=== PATIENT | male | born 2000 | race Caucasian/White ===

== ENCOUNTER 2020-02-04 19:35 | Inpatient (IN) | payer OTHER ==
--- OUTSIDE RECORDS SUMMARY | 2020-02-04 19:50 | XMS ---
:2000 [facility] Support Name Relationship Address Phone [employer] Unavailable [address] [facility] [phone] [place] [address] EDITH ARANGO MOTHER [address] [place] [address] Re-disclosure Warning The records that you are about to access may contain information from federally- assisted alcohol or drug abuse programs. If such information is present, then the following federally mandated warning applies: This information has been disclosed to you from records protected by federal confidentiality rules (42 CFR part 2). The federal rules prohibit you from making any further disclosure of this information unless further disclosure is expressly permitted by the written consent of the person to whom it pertains or as otherwise permitted by 42 CFR part 2. A general authorization for the release of medical or other information is NOT sufficient for this purpose. The Federal rules restrict any use of the information to criminally investigate or prosecute any alcohol or drug abuse patient.The records that you are about to access may contain highly sensitive health information, the redisclosure of which is protected by Article 27-F of the [facility] Public Health law. If you continue you may haveaccess to information: Regarding HIV / AIDS; Provided by facilities licensed or operated by the [facility] Office of Mental Health; or Provided by the [facility] Office for People With Developmental Disabilities. If such information is present, then the following [facility] mandated warning applies: This information has been disclosed to you from confidential records which are protected by state law. State law prohibits you from making any further disclosure of this information without the specific written consent of the person to whom it pertains, or as otherwise permitted by law. Any unauthorized further disclosure in violation of state law may result in a fine or senior living sentence or both. A general authorization for the release of medical or other information is NOT sufficient authorization for further disclosure. Insurance Providers Payer name Policy type Policy ID Covered Covered green party's Policy P vidhya / Coverage green party ID relationship to [employer] ormation type lfynn AFFINITY [id number] SP [id number]
--- NOTE | 2020-02-04 20:12 | PDOC ---
History of Present Illness - General Chief Complaint: Pain, Acute Stated Complaint: ABD PAIN Time Seen by Provider: 02/04/20 20:07 - History of Present Illness Initial Comments: 19yo M with no significant PMH presents with abdominal pain x1 day. Thinks episode was triggered by eating spoiled sausage this am. States that abdominal pain is constant, 6-8/10 in intensity, diffuse, described as bloating sensation, worsened with positional change - laying flat, laying on side; improved with sitting up. Took pepto and deanna seltzer without improvement. Reports annual episodes of similar symptoms, goes to [facility] and has been treated with fluids and unknown medications with improvement. Has not seen a horticultural specialty grower. Denies hx of abdominal surgeries. Reports associated subjective f/c, n/v. Reports 1 episode of NBNB emesis, has been able to tolerate water intake without further emesis. PCP: Irwin PMH: denies PSH: ankle surgery Meds: denies All: NKDA Review of Systems CONSTITUTIONAL: reports subjective fever, chills; denies diaphoresis, generalized weakness, malaise HEENT: denies rhinorrhea, nasal congestion, sore throat CARDIOVASCULAR: denies chest pain, syncope, palpitations, irregular heart rate, lightheadedness, peripheral edema RESPIRATORY: denies cough, shortness of breath GASTROINTESTINAL: reports abdominal pain, abdominal distension, nausea, vomiting; denies diarrhea, constipation, melena, hematochezia GENITOURINARY: denies dysuria, frequency, urgency, hematuria, flank pain, genital pain MUSCULOSKELETAL: denies myalgia, arthralgia ENDOCRINE: denies unexplained weight gain, unexplained weight loss NEUROLOGIC: denies headache, loss of consciousness, focal weakness or paresthesias, dizziness SKIN: denies rash, itching Physical Exam General: awake, alert, fully oriented, in mild distress, well developed, well nourished Head: normocephalic, atraumatic Eyes: PERRL, anicteric sclera, conjunctiva clear ENT: hearing grossly normal, oropharynx clear without exudates, moist mucous membranes Lung: equal breath sounds b/l, CTA b/l, no crackles, wheezes; no distress, speaks full sentences Heart: RRR, normal S1, S2, no murmurs appreciated Abdomen: diffusely tender with maximal point of tenderness in RLQ, normoactive bowel sounds, + rebound, + Psoas, + obturator signs Extremities: normal ROM, no edema, no erythema or tenderness, DP/PT pulses 2+ and symmetric, no clubbing, cyanosis Neuro: CN2-12 grossly intact, moves all extremities, normal speech, sensation intact Skin: warm, dry, normal skin turgor, capillary refill <2 seconds, no rashes or lesions noted MDM 19yo M with no significant PMH presents with abdominal pain x1 day. Vitals WNL DDx including but not limited to: appendicitis, pancreatitis, gastritis Workup: CBC, CMP, lipase, UA, CT a/p TX: IV fluids, tylenol, zofran, pepcid ED course Labs: slight leukocytosis (11.7), no anemia; UA - ketonuria, electrolytes WNL, lipase WNL 02/04/20 22:30 Pt reports mild improvement in pain with Pepcid 02/04/20 23:[address] Rinaldi - patient with early appendicitis with dilated appendix @ 1cm and slight free fluid in pelvis CT a/p The appendix is dilated up to 1 cm with intraluminal fluid and an intraluminal appendicolith. No appreciable periappendiceal inflammation but there is fluid in the pelvic gutter. Findings most likely represent early acute appendicitis. No free intraperitoneal air. No abscess. No bowel obstruction. - Will order Zosyn - NPO - Will order T&S, Coags Disposition: Admit Past History - Medical History Allergies/Adverse Reactions: Allergies Allergy/AdvReac Type Severity Reaction Status Date / Time No Known Allergies Allergy Verified 02/04/20 21:17 Home Medications: Ambulatory Orders NK [No Known Home Medication] 02/04/20 Anemia: No COPD: No - Immunization History Immunization Up to Date: Yes - Psycho-Social/Smoking History Smoking History: Never smoked - Substance Abuse Hx (Audit-C & DAST Scrn) How often the patient has a drink containing alcohol: Never Score: In Men: 4 or > Positive; In Women: 3 or > Positive: 0 Screen Result (Pos requires Nsg. Audit-10AR): Negative In the last yr the pt used illegal drug/Rx for NonMed reason: No Score: Yes response is considered Positive: 0 Screen Result (Positive result requires Nsg. DAST-10): Negative *Physical Exam - Vital Signs Last Vital Signs Temp Pulse Resp BP Pulse Ox 98.6 F 47 L 19 122/57 L 100 02/04/20 19:39 02/04/20 19:39 02/04/20 19:39 02/04/20 19:39 02/04/20 19:39 ED Treatment Course - LABORATORY CBC & Chemistry Diagram: 02/04/20 20:10 02/04/20 20:10 Discharge - Discharge Information Problems reviewed: Yes Clinical Impression/Diagnosis: Appendicitis Qualifiers: Appendicitis type: acute appendicitis Acute appendicitis type: unspecified acute appendicitis type Qualified Code(s): K35.80 - Unspecified acute appendicitis Condition: Stable - Admission Yes - Follow up/Referral - Patient Discharge Instructions - Post Discharge Activity
[2020-02-04] MEDS ORDERED: ACETAMINOPHEN 1000 MG/100 ML VIAL (NON FORMULARY) IVPB ONE (20:50)
[2020-02-04] MEDS ORDERED: ONDANSETRON 4 MG/2 ML VIAL IVPUSH ONE (20:50)
[2020-02-04] MEDS ORDERED: SODIUM CHLORIDE 0.9% 1000 ML INFUS.BAG IV ONE ×2 (20:50→22:14)
[2020-02-04] MEDS ORDERED: FAMOTIDINE 20 MG/50 ML IVPB 20 MG/50 ML MG IVPB ONE ×2 (20:50→21:24)
[2020-02-04] MEDS ORDERED: ACETAMINOPHEN INJECTION 100 ML IVPB ONE (21:24)
[2020-02-04 21:38] LABS: BASO % 0.2 % (0-2.0); EOS % 0.1 % (0-4.5); HEMATOCRIT 43.2 % (35.4-49); HEMOGLOBIN 14.8 GM/dL (11.7-16.9); LYMPH % 7.6 % (8-40); MCH 32.5 pg (25.7-33.7); MCHC 34.3 g/dl (32.0-35.9); MEAN CELL VOLUME 94.7 fl (80-96); MONO % 3.4 % (3.8-10.2); NEUT % 88.7 % (42.8-82.8); PLATELET COUNT 217 K/MM3 (134-434); RBC 4.57 M/mm3 (4.00-5.60); RDW 12.8 % (11.9-15.9); WHITE BLOOD COUNT 11.7 K/mm3 (4.0-10.0)
[2020-02-04 21:41] LABS: PH,URINE 5.5 (5.0-8.0); URINE APPEARANCE CLEAR; URINE BILIRUBIN NEGATIVE (NEGATIVE); URINE COLOR YELLOW; URINE GLUCOSE (UA) NEGATIVE (NEGATIVE); URINE KETONE 3+ (NEGATIVE); URINE LEUK ESTERASE NEGATIVE (NEGATIVE); URINE NITRITE NEGATIVE (NEGATIVE); URINE PROTEIN NEGATIVE (NEGATIVE); URINE UROBILINOGEN 0.2 mg/dL (0.2-1.0)
--- NOTE | 2020-02-04 21:54 | PDOC ---
Documentation entered by Rich Campos SCRIBE, acting as scribe for Yaquelin Decker DO. Yaquelin Decker DO: This documentation has been prepared by the Rush benedict inRich SCRIBE, under my direction and personally reviewed by me in its entirety. I confirm that the documentation accurately reflects all work, treatment, procedures, and medical decision making performed by me. Attending Attestation - Resident Resident Name: DurgaYadira - ED Attending Attestation I have performed the following: I have examined & evaluated the patient, The case was reviewed & discussed with the resident, I agree w/resident's findings & plan, Exceptions are as noted - HPI HPI: 02/04/20 21:05 The patient is a 19 year old male with no significant past medical history who presents to the emergency department for evaluation of abdominal pain that began this morning after eating a spoiled sausage. The patient reports his constant 6- 8/10 pain is associated with bloating and worsened with lying down and improved with sitting up. He endorses taking pepto and deanna sletzer to no relief. He notes a history of similar symptoms for which he goes to [place] but has never seen a GI. The patient denies chest/back pain, cough, shortness of breath, fever, chills, nausea, and vomiting. Denies any symptoms. Denies any other symptoms. Allergies: NKA Social Hx: None reported Surgical Hx: ankle surgery PCP: Bassem Gayle MD - Physicial Exam PE: 02/04/20 20:50 Constitutional: Awake, alert, oriented. No acute distress. Head: Normocephalic. Atraumatic Eyes: PERRL. EOMI. Conjunctivae are not pale. ENT: Mucous membranes are moist and intact. Posterior pharynx without exudates or erythema. Uvula midline. Neck: Supple. Full ROM. No lymphadenopathy. Cardiovascular: Regular rate. Regular rhythm. S1, S2 regular. Distal pulses are 2+ and symmetric. Pulmonary/Chest: No evidence of respiratory distress. Clear to auscultation bilaterally No wheezing, rales or rhonchi. Abdominal: Soft and non-distended. There is no tenderness. No rebound, guarding or rigidity. No organomegaly. No palpable masses. Good bowel sounds. Back: No CVA tenderness. Musculoskeletal: No edema. No cyanosis. No clubbing. Full range of motion in all extremities. Nocalf tenderness. Radial/pedal pulses are intact and 2+ bilaterally Skin: Skin is warm and dry. No petechiae. No purpura. Neurological: Alert and oriented to person, place, and time. Cranial nerves II-XII are grossly intact. Normal speech. Strength is grossly symmetric. No sensory deficits. Psychiatric: Good eye contact. Normal interaction, affect and behavior. - Medical Decision Making 02/04/20 21:53 a/p: 19yo male with acute onset of abd pain assoc with n/v -diffuse ttp, +rebound ttp diffusely, but worse in RLQ -concern for acute appy, pancreatitis, colitis -will send labs, ct imaging -will medicate for pain and nausea, ivf -will monitor and reassess 02/04/20 23:37 pt with early appy will need iv abx and ivf 02/04/20 23:39 consult placed to Rohini 02/04/20 23:41 [facility] Discharge - Discharge Information Problems reviewed: Yes Clinical Impression/Diagnosis: Appendicitis Condition: Fair - Admission Yes - Follow up/Referral Referrals: Bassem Gayle MD [Primary Care Provider] - - Patient Discharge Instructions - Post Discharge Activity
[2020-02-04 22:09] LABS: ALBUMIN 4.4 g/dl (3.4-5.0); BLOOD UREA NITROGEN 18.4 mg/dL (7-18); CALCIUM 9.6 mg/dL (8.5-10.1)
[2020-02-04 22:14] LABS: BILIRUBIN,TOTAL 1.2 mg/dL (0.2-1)
[2020-02-04 22:15] LABS: TOT PROT 7.3 g/dl (6.4-8.2)
[2020-02-04 22:16] LABS: POTASSIUM 4.3 mmol/L (3.5-5.1)
[2020-02-04] MEDS ORDERED: PIPERACILLIN/TAZOB 3.375 GM 3.375 GM in DEXTROSE 5%-WATER - 50 ML IVPB ONE (23:42)
[2020-02-04] MEDS ORDERED: PIPERACILLIN/TAZOB 3.375 GM 3.375 GM/50 ML BAG IVPB ONE (23:56)
--- NOTE | 2020-02-05 01:39 | PN ---
Teaching Attending Note Name of Resident: Radha Avendaño ATTENDING PHYSICIAN STATEMENT I saw and evaluated the patient. I reviewed the resident's note and discussed the case with the resident. I agree with the resident's findings and plan as documented. SUBJECTIVE: Patient is a 19 year old man with no reported PMH who presents with abdominal pain for 1 day. Thinks episode was triggered by eating spoiled sausage this am. States that abdominal pain is constant, 8/10 in intensity, diffuse and described as bloating sensation. Pain is worsened with positional change - laying flat, laying on side; improved with sitting up. Took Pepto and Anna seltzer without improvement. Reports annual episodes of similar symptoms, goes to [facility] and has been treated with fluids and unknown medications with improvement. Has not seen a GI. Denies abdominal surgeries. Reports associated fever, chills, nausea and vomiting. Reports one episode of NBNB emesis, has been able to tolerate water intake without further emesis. Patient denies chest pain, shortness of breath, headache, palpitations, dizziness, diarrhea, constipation, dysuria, frequency, urgency, melena, hematochezia or hematuria. Denies alcohol, tobacco or illicit drug use. No sick contacts or recent travels. Family history of DM in mother. OBJECTIVE: Alert Vital Signs Period Temp Pulse Resp BP Sys/Jon Pulse Ox Last 24 Hr 98.4 F-98.6 F 47-50 19-20 122-128/57-69 100-100 HEENT: No Jaundice, eye redness or discharge, PERRLA, EOMI. Normocephalic, atraumatic. External ears are normal and hearing is grossly intact. No nasal discharge. Neck: Supple, nontender. No palpable adenopathy or thyromegaly. No JVD Chest: Good effort. Clear to auscultation and percussion. Heart: Regular. No S3, rub or murmur Abdomen: Not distended, soft, RLQ tenderness and no HSM. No rebound or guarding. Normal bowel sounds. Ext: Peripheral pulses intact. No leg edema. Skin: Warm and dry. No petechiae, rash or ecchymosis. Neuro: Alert. Oriented x3. CN 2-12 grossly intact. Sensation grossly intact in all four extremities and DTR are symmetric. Psych: Appropriate mood and affect. Good insight. Home Medications Medication Instructions Recorded NK [No Known Home Medication] 02/04/20 Abnormal Lab Results 02/04/20 02/04/20 02/04/20 20:10 20:10 20:10 WBC 11.7 H Absolute Neuts (auto) 10.4 H Neutrophils % 88.7 H Lymphocytes % 7.6 L D Monocytes % 3.4 L Anion Gap 7 L BUN 18.4 H Random Glucose 117 H Total Bilirubin 1.2 H AST 64 H Urine Ketones 3+ H Current Medications Generic Name Dose Route Start Last Admin Trade Name Frewendy PRN Reason Stop Dose Admin Acetaminophen 1,000 mg 02/05/20 03:48 Ofirmev Injection - IVPB 02/06/20 03:48 Q6H PRN PAIN LEVEL 6-10 Dextrose/Sodium Chloride 1,000 mls @ 100 mls/hr 02/05/20 03:45 02/05/20 04:51 D5-Ns - IV 02/08/20 13:44 100 mls/hr ASDIR OLINDA Administration Piperacillin Sod/Tazobactam 50 mls @ 100 mls/hr 02/05/20 05:45 Sod 3.375 gm/ Dextrose IVPB Q6H-IV OLINDA Protocol ASSESSMENT AND PLAN: 1. Appendicitis - CT scan of abdomen/pelvis with IV contrast shows evidence of appendicitis. ER staff prescribed IV Zosyn for the patient. Will keep him NPO, treat with D5NS, use Tylenol for pain control and consult Surgery. EKG shows sinus bradycardia at 46/minute and QTc 407 with no significant acute ischemic ST-T wave changes. No old EKG available for comparison. Patient says he plays soccer and exercises a lot doing cardio workouts. 2. DVT prophylaxis - Lovenox 40 mg SQ q 24 hours. 3. Advance directives - Full code
--- OUTSIDE RECORDS SUMMARY | 2020-02-05 01:59 | XMS ---
:2000 Author Organization [facility] Support Name Relationship Address Phone [employer] Unavailable [address] [place] [address] [employer] Unavailable [address] [place] [address] EDITH ARANGO MOTHER [address] [facility] [phone] [place] [address] Re-disclosure Warning The records that you are [...] is protected by Article 27-F of the [facility] Public Health law. If you continue you may haveaccess to information: Regarding HIV / AIDS; Provided by facilities licensed or operated by the [facility] Office of Mental Health; or Provided by the [facility] Office for People With Developmental Disabilities. If such information is present, then the following [facility] mandated warning applies: This information has been [...] law may result in a fine or nursing home sentence or both. A general authorization for the release of medical or other information is NOT sufficient authorization for further disclosure. Insurance Providers Payer name Policy type Policy ID Covered Covered green party's Policy P vidhya / Coverage green party ID relationship to [employer] ormation type flynn AFFINITY [id number]
[2020-02-05 02:07] LABS: INR 1.21 (0.83-1.09); PROTHROMBIN TIME (PATIENT) 14.8 SEC (9.7-13.0)
[2020-02-05 02:09] LABS: ACTIVATED PTT 31.4 SECONDS (25.2-36.5)
[2020-02-05] MEDS ORDERED: DEXTROSE 5%-NORMAL SALINE 1,000 ML IV SCH ×2 (03:45→15:37)
[2020-02-05] MEDS ORDERED: PIPERACILLIN/TAZOB 3.375 GM 3.375 GM/50 ML BAG IVPB ONE (04:53)
--- NOTE | 2020-02-05 05:21 | HP ---
CHIEF COMPLAINT: abdominal pain PCP: Dr. Gayle HISTORY OF PRESENT ILLNESS: Patient is a 19 yo M with no significant PMH who presents with moderate to severe abdominal pain since the afternoon; generalized at first, now localized to RLQ. Pt reports that the pain is constant, 6-8/10, cramping and associated with a bloating sensation. Pt reports the pain worse with positional changes likel laying flat, laying on R side, or walking; better with laying at angle, sitting up, or standing up. Pt tried pepto bismol and deanna seltzer at home with no relief. Pt has no previous abdominal surgeries. The pain is associated with subjective fevers/chills, nausea, and vomiting (1 episode at home - non bloody, non bilious). Denies associated chest pain, SOB, headache, palpitations, dizziness, diarrhea, constipation, dysuria, frequency, urgency, decreased appetite, constipation, or diarrhea. ER course was notable for: (1)IV Tylenol, IVF, IV Zosyn (2)ED consulted surgery; will call surgery in the AM (3)CT Abd/Pel - with early appendicitis Recent Travel: denies Sick contacts: denies PAST MEDICAL HISTORY: per hpi PAST SURGICAL HISTORY: ankle ligament repair; jaw surgery for alignment; tonsillectomy Family hx - mother with DM Social History: Pt lives at home with grandparents but grandparents are currently in [place]. Parents are . Mother lives in [place]. father lives in [place]. Pt is athletic and plays a lot of soccer and does a great deal of exercise. Smoking: denies cigarette smoking Alcohol: 2 small cups of whiskey on weekend Drugs: 2 small joints of marijuana every month Allergies No Known Allergies Allergy (Verified 02/04/20 21:17) HOME MEDICATIONS: Home Medications Medication Instructions Recorded NK [No Known Home Medication] 02/04/20 REVIEW OF SYSTEMS as per HPI PHYSICAL EXAMINATION Vital Signs - 24 hr 02/04/20 02/04/20 02/05/20 19:39 21:18 00:25 Temperature 98.6 F 98.4 F Pulse Rate 47 L Pulse Rate [ 50 L Left Radial] Respiratory 19 20 Rate Blood Pressure 122/57 L Blood Pressure 128/69 [Right Arm] O2 Sat by Pulse 100 100 100 Oximetry (%) GENERAL: Awake, alert, and fully oriented, in no acute distress. HEAD: Normal with no signs of trauma. EYES: Pupils equal, round and reactive to light, extraocular movements intact, sclera anicteric, conjunctiva clear. EARS, NOSE, THROAT: Ears normal, nares patent, oropharynx clear without exudat es. Moist mucous membranes. NECK: Normal range of motion, supple without lymphadenopathy, JVD, or masses. LUNGS: Breath sounds equal, clear to auscultation bilaterally. No wheezes, and no crackles. No accessory muscle use. HEART: Regular rate and rhythm, normal S1 and S2 without murmur, rub or gallop. ABDOMEN: Soft, not distended, normoactive bowel sounds; RUQ tenderness with mild rebound and guarding; McBurney's point positive, Psoas +, Obturator +, Rovsing + MUSCULOSKELETAL: Normal range of motion at all joints. No bony deformities or tenderness. No CVA tenderness. UPPER EXTREMITIES: 2+ pulses, warm, well-perfused. No cyanosis. No clubbing. No peripheral edema. LOWER EXTREMITIES: 2+ pulses, warm, well-perfused. No calf tenderness. No peripheral edema. NEUROLOGICAL: Cranial nerves II-XII intact. Normal speech. Normal gait. PSYCHIATRIC: Cooperative. Good eye contact. Appropriate mood and affect. SKIN: Warm, dry, normal turgor, no rashes or lesions noted, normal capillary refill. Laboratory Results - last 24 hr 02/04/20 02/04/20 02/04/20 20:10 20:10 20:10 WBC 11.7 H RBC 4.57 Hgb 14.8 Hct 43.2 MCV 94.7 MCH 32.5 MCHC 34.3 RDW 12.8 Plt Count 217 MPV 9.0 Absolute Neuts (auto) 10.4 H Neutrophils % 88.7 H Lymphocytes % 7.6 L D Monocytes % 3.4 L Eosinophils % 0.1 D Basophils % 0.2 Nucleated RBC % 0 PT with INR INR PTT (Actin FS) Sodium 137 Potassium 4.3 Chloride 102 Carbon Dioxide 28 Anion Gap 7 L BUN 18.4 H Creatinine 1.0 Est GFR (CKD-EPI)AfAm 125.02 Est GFR (CKD-EPI)NonAf 107.87 Random Glucose 117 H Calcium 9.6 Total Bilirubin 1.2 H AST 64 H ALT 48 Alkaline Phosphatase 80 Total Protein 7.3 Albumin 4.4 Lipase 111 Urine Color Yellow Urine Appearance Clear Urine pH 5.5 Ur Specific [place] 1.026 Urine Protein Negative Urine Glucose (UA) Negative Urine Ketones 3+ H Urine Blood Negative Urine Nitrite Negative Urine Bilirubin Negative Urine Urobilinogen 0.2 Ur Leukocyte Esterase Negative 02/05/20 01:30 WBC RBC Hgb Hct MCV MCH MCHC RDW Plt Count MPV Absolute Neuts (auto) Neutrophils % Lymphocytes % Monocytes % Eosinophils % Basophils % Nucleated RBC % PT with INR 14.80 H INR 1.21 H PTT (Actin FS) 31.4 Sodium Potassium Chloride Carbon Dioxide Anion Gap BUN Creatinine Est GFR (CKD-EPI)AfAm Est GFR (CKD-EPI)NonAf Random Glucose Calcium Total Bilirubin AST ALT Alkaline Phosphatase Total Protein Albumin Lipase Urine Color Urine Appearance Urine pH Ur Specific [place] Urine Protein Urine Glucose (UA) Urine Ketones Urine Blood Urine Nitrite Urine Bilirubin Urine Urobilinogen Ur Leukocyte Esterase Imaging front desk auxiliary Report of CT A/P with IV contrast The appendix is dilated up to 1 cm with intraluminal fluid and an intraluminal appendicolith. No appreciable periappendiceal inflammation but there is fluid in the pelvic gutter. Findings most likely represent early acute appendicitis. No free intraperitoneal air. No abscess. No bowel obstruction. ASSESSMENT/PLAN: Patient is a 19 yo M with no significant PMH who presents with moderate to severe abdominal pain since the afternoon; generalized at first, now localized to RLQ. Pt found to have acute appendicitis on preliminary CT A/P read. Patient being admitted for eval and treatment of acute appendicitis. #Acute Uncomplicated Appendicitis (2/2 to appendicolith) IO preliminary read of CT A/P with IV contrast: Findings most likely represent early acute appendicitis. (full read above) Pt with rebound and mild guarding but soft abdomen Mild leukocytosis ER gave IV Zosyn -Surgery consulted; appreciate recs -f/u routine labs; coags; T&S -D5NS @100 cc/hr -IV tylenol for pain control; pt responded well to this -f/u official CT read #FEN -F - D5NS @ 100 cc/hr -E - monitor lytes; replete prn -N - NPO #DVT Ppx - SCDs #Dispo -admit to med-surg Family Medical History Family History: As Documented Visit type - Emergency Visit Emergency Visit: Yes ED Registration Date: 02/04/20 Care time: The patient presented to the Emergency Department on the above date and was hospitalized for further evaluation of their emergent condition. - New Patient This patient is new to me today: Yes Date on this admission: 02/05/20 - Critical Care Critical Care patient: No ATTENDING PHYSICIAN STATEMENT I saw and evaluated the patient. I reviewed the resident's note and discussed the case with the resident. I agree with the resident's findings and plan as documented. SUBJECTIVE: OBJECTIVE: ASSESSMENT AND PLAN:
[2020-02-05 05:30] LABS: BASO % 0.5 % (0-2.0); EOS % 0.3 % (0-4.5); HEMATOCRIT 40.3 % (35.4-49); HEMOGLOBIN 13.5 GM/dL (11.7-16.9); LYMPH % 13.7 % (8-40); MCH 31.6 pg (25.7-33.7); MCHC 33.5 g/dl (32.0-35.9); MEAN CELL VOLUME 94.2 fl (80-96); MEAN PLT VOLUME 8.8 fl (7.5-11.1); MONO % 8.2 % (3.8-10.2); NEUT % 77.3 % (42.8-82.8); PLATELET COUNT 186 K/MM3 (134-434); RBC 4.27 M/mm3 (4.00-5.60); RDW 12.4 % (11.9-15.9); WHITE BLOOD COUNT 11.1 K/mm3 (4.0-10.0)
[2020-02-05 05:42] LABS: INR 1.2 (0.83-1.09); PROTHROMBIN TIME (PATIENT) 14.7 SEC (9.7-13.0)
[2020-02-05 05:44] LABS: ACTIVATED PTT 31.4 SECONDS (25.2-36.5)
[2020-02-05 05:45] LABS: CALCIUM 8.5 mg/dL (8.5-10.1)
[2020-02-05] MEDS ORDERED: PIPERACILLIN/TAZOB 3.375 GM 3.375 GM in DEXTROSE 5%-WATER - 50 ML IVPB SCH (05:45)
[2020-02-05 05:46] LABS: ALBUMIN 3.7 g/dl (3.4-5.0); BLOOD UREA NITROGEN 12.8 mg/dL (7-18)
[2020-02-05 05:49] LABS: PHOSPHOROUS 3.8 mg/dL (2.5-4.9)
[2020-02-05 05:50] LABS: BILIRUBIN,TOTAL 1.8 mg/dL (0.2-1)
[2020-02-05] MEDS ORDERED: ACETAMINOPHEN INJECTION 100 ML IVPB ONE (07:31)
[2020-02-05] MEDS: ACETAMINOPHEN 1000 MG/100 ML VIAL (NON FORMULARY) IVPB PRN ×2 (07:38→13:56)
--- NOTE | 2020-02-05 07:54 | CONSULT ---
<Sabi Aldridge - Last Filed: 02/05/20 11:25> - Consultation REQUESTING PROVIDER: CONSULT REQUEST: We have been asked to surgically evaluate this patient for abdominal pain-appendicitis Hospitalist:Benji Loving MD HISTORY OF PRESENT ILLNESS: The patient is a 19 yo male who presents to the ER for acute abd pain. He states that yesterday am he was feeling ok and then developed abd pain/bloating in the mid afternoon. He complains of bloating, had a normal bowel movement yesterday am. Fever/chills. No dysuria/hematuria. PMHx: denies PSHx: RIght ankle surgery/hardware in place. Mandible surgery-plate in place, tonsillectomy Home Medications Medication Instructions Recorded NK [No Known Home Medication] 02/04/20 Allergies Allergy/AdvReac Type Severity Reaction Status Date / Time No Known Allergies Allergy Verified 02/04/20 21:17 REVIEW OF SYSTEMS: CONSTITUTIONAL: Absent: fever, chills CARDIOVASCULAR: Absent: palpitations, irregular heart rate RESPIRATORY: Absent: cough, shortness of breath GASTROINTESTINAL: Present: abdominal painx 1 day, no h/o ulcers/chrons disease/constipation GENITOURINARY: Absent: dysuria, hematuria MUSCULOSKELETAL: Absent: myalgia, joint swelling, back pain, neck pain HEMATOLOGIC/IMMUNOLOGIC: Absent: easy bleeding, easy bruising no h/o of leg swelling/clotting disorders NEUROLOGIC: Absent: headache, seizure PHYSICAL EXAM: GENERAL: Awake, alert, and fully oriented, in no acute distress. HEAD: Normal with no signs of trauma. EYES: sclera anicteric, conjunctiva clear. LUNGS: Clear to auscultation bilat anteriorly. No wheezes, and no crackles. HEART: Regular rate and rhythm. No murmurs ABDOMEN: Soft, non-distended. RLQ tenderess to palpation at McBurney's point. Positive Rovsing LOWER EXTREMITIES: No calf tenderness. No peripheral edema. NEUROLOGICAL: Normal speech, gait not observed. PSYCH: Cooperative. Good eye contact. Appropriate mood and affect. Vital Signs Temperature 98.0 F 02/05/20 06:29 Pulse Rate 76 02/05/20 06:29 Respiratory Rate 20 02/05/20 06:29 Blood Pressure 127/63 02/05/20 06:29 O2 Sat by Pulse Oximetry (%) 97 02/05/20 06:29 Lab Results WBC 11.1 K/mm3 (4.0-10.0) H 02/05/20 05:18 RBC 4.27 M/mm3 (4.00-5.60) 02/05/20 05:18 Hgb 13.5 GM/dL (11.7-16.9) 02/05/20 05:18 Hct 40.3 % (35.4-49) 02/05/20 05:18 MCV 94.2 fl (80-96) 02/05/20 05:18 MCHC 33.5 g/dl (32.0-35.9) 02/05/20 05:18 RDW 12.4 % (11.9-15.9) 02/05/20 05:18 Plt Count 186 K/MM3 (134-434) 02/05/20 05:18 INR 1.20 (0.83-1.09) H 02/05/20 05:18 Sodium 139 mmol/L (136-145) 02/05/20 05:18 Potassium 4.0 mmol/L (3.5-5.1) 02/05/20 05:18 Chloride 106 mmol/L (98-107) 02/05/20 05:18 Carbon Dioxide 29 mmol/L (21-32) 02/05/20 05:18 Anion Gap 4 MMOL/L (8-16) L 02/05/20 05:18 BUN 12.8 mg/dL (7-18) 02/05/20 05:18 Creatinine 1.0 mg/dL (0.55-1.3) 02/05/20 05:18 Random Glucose 118 mg/dL (74-106) H 02/05/20 05:18 Calcium 8.5 mg/dL (8.5-10.1) 02/05/20 05:18 Blood Type O POSITIVE 02/05/20 01:30 Antibody Screen Negative 02/05/20 01:30 CT scan: dilated appendix with appendicolith 5mm Problem List - Problems (1) Appendicitis Assessment/Plan: Pt with evidence of acute appendicitis on clinic exam and on CT scan Plan for lap appy today with Dr. Nova Pt received IV abx-zosyn at midnight. IV tylenol this am. He remains npo since yesterday 11am Problems reviewed: Yes Code(s): K37 - UNSPECIFIED APPENDICITIS Qualifiers: Appendicitis type: acute appendicitis Acute appendicitis type: unspecified acute appendicitis type Qualified Code(s): K35.80 - Unspecified acute appendicitis Visit type - Case Type Case Type: ED Admission - Emergency Emergency Visit: Yes ED Registration Date: 02/04/20 Care time: The patient presented to the Emergency Department on the above date and was hospitalized for further evaluation of their emergent condition. - New patient This patient is new to me today: Yes Date on this admission: 02/05/20 <Maynor Nova - Last Filed: 02/11/20 12:23> - Consultation Attending Surgeon: I personally saw and examined the patient. My examination reveals a patient with acute appendicitis. I discussed the case with the surgical PA and agree with their findings and plan of care with any exceptions as noted. ~ Maynor Nova MD, FACS
[2020-02-05] MEDS ORDERED: BUPIVACAINE HCL 50 ML ONE ×2 (08:12→10:27)
[2020-02-05] MEDS ORDERED: GLYCOPYRROLATE 0.2 MG/1 ML VIAL ONE ×2 (09:09→10:26)
[2020-02-05] MEDS ORDERED: PROPOFOL 20 ML ONE ×3 (09:09)
[2020-02-05] MEDS ORDERED: LIDOCAINE HCL/PF 2% SDV 5ML VIAL ONE ×2 (09:09→10:26)
[2020-02-05] MEDS ORDERED: DEXAMETHASONE SOD PHOSPHATE 4 MG/1 ML VIAL ONE ×2 (09:09→10:26)
[2020-02-05] MEDS ORDERED: NEOSTIGMINE METHYLSULFATE 0.5 MG/ML - 10 ML MDV ONE (09:09)
[2020-02-05] MEDS ORDERED: ROCURONIUM BROMIDE 50 MG/5 ML SYRINGE ONE (09:09)
[2020-02-05] MEDS ORDERED: MIDAZOLAM HCL 2 MG/2 ML SINGLE DOSE VIAL ONE (09:14)
[2020-02-05] MEDS ORDERED: LIDOCAINE HCL 2% JELLY (5 ML/TUBE) ONE ×2 (09:17→10:26)
[2020-02-05] MEDS ORDERED: PIPERACILLIN/TAZOB 3.375 GM 3.375 GM in DEXTROSE 5%-WATER - 50 ML IVPB ONE (09:45)
[2020-02-05] MEDS ORDERED: PIPERACILLIN/TAZOBACTAM 3.375 GM VIAL IVPB ONE (09:55)
[2020-02-05] MEDS ORDERED: BUPIVACAINE HCL/PF 0.5% (5 MG/ML) 30 ML VIAL IJ ONE ×2 (10:20)
[2020-02-05] MEDS ORDERED: KETOROLAC TROMETHAMINE 30 MG/1 ML VIAL ONE (10:30)
--- NOTE | 2020-02-05 11:04 | OP ---
Operative Note - Note: Operative Date: 02/05/20 Pre-Operative Diagnosis: acute appendicitis Operation: laparoscopic appendectomy Findings: acute suppurative appendicitis Surgeon: Maynor Nova Reamer Hand: Eliot Driscoll Anesthesiologist/REBEAMER: Arlyn Cortes Anesthesia: General Specimens Removed: appendix Estimated Blood Loss (mls): 10
[2020-02-05] MEDS ORDERED: oxyCODONE HCL 5 MG TABLET PO PRN ×2 (11:06→15:37)
[2020-02-05] MEDS ORDERED: LACTATED RINGERS SOLUTION 1,000 ML IV SCH ×2 (11:15→15:37)
--- NOTE | 2020-02-05 11:35 | SURG ---
Surgery Occupational Health Specialist Note Occupational Health Specialist: Eliot Driscoll PA-C (Suzy) Date of Service: 02/05/20 Diagnosis: acute appendicitis Procedure: Operation: laparoscopic appendectomy I was present for the entirety of the operative procedure. For further detail, please refer to operative report. Visit type - Emergency Emergency Visit: Yes ED Registration Date: 02/04/20 Care time: The patient presented to the Emergency Department on the above date and was hospitalized for further evaluation of their emergent condition. - New patient This patient is new to me today: Yes Date on this admission: 02/05/20 - Critical Care Critical Care patient: No
--- NOTE | 2020-02-05 12:08 | PN ---
Teaching Attending Note Name of Resident: Glenroy Tinoco ATTENDING PHYSICIAN STATEMENT I saw and evaluated the patient. I reviewed the resident's note and discussed the case with the resident. I agree with the resident's findings and plan as documented. SUBJECTIVE: Seen and examined at bedside. Pain controlled. No complaints at this time. Ap pendectomy uncomplicated per surgery OBJECTIVE Last Vital Signs Temp Pulse Resp BP Pulse Ox 98.6 F 67 18 97/42 L 99 02/05/20 11:52 02/05/20 11:52 02/05/20 11:52 02/05/20 11:52 02/05/20 11:52 PE: Per resident note Labs/Imaging: reviewed ASSESSMENT/PLAN 19-year-old male no significant past medical history presents with acute appendicitis. #Appendicitis Status post uncomplicated appendectomy on 02/05/2020 Pain control Fluids Likely discharge tomorrow morning
--- NOTE | 2020-02-05 12:35 | EKG ---
Test Reason : Blood Pressure : / mmHG Vent. Rate : 046 BPM Atrial Rate : 046 BPM P-R Int : 126 ms QRS Dur : 104 ms QT Int : 466 ms P-R-T Axes : 035 023 010 degrees QTc Int : 407 ms SINUS BRADYCARDIA EARLY REPOLARIZATION NONSPECIFIC INTRAVENTRICULAR CONDUCTION DEFECT NO PREVIOUS ECGS AVAILABLE Confirmed by HIGINIO QUEZADA MD ([id number]) on 02/05/2020 12:35:06 PM Referred By: Confirmed By:HIGINIO QUEZADA MD
[2020-02-05 12:52] VITALS: BMI 28.7
[2020-02-05] MEDS: PIPERACILLIN/TAZOB 3.375 GM 3.375 GM in DEXTROSE 5%-WATER - 50 ML IVPB SCH (14:44)
[2020-02-05] MEDS ORDERED: ACETAMINOPHEN 1000 MG/100 ML VIAL (NON FORMULARY) IVPB PRN (15:37)
[2020-02-05] MEDS ORDERED: IBUPROFEN 400 MG TABLET (FP) PO PRN (15:37)
--- NOTE | 2020-02-05 17:45 | PN ---
Physical Exam: SUBJECTIVE: Patient seen and examined at bedside. Status post Lap Appendectomy. Feeling well, tolerating liquid diet. Denies any pain. OBJECTIVE: Vital Signs Period Temp Pulse Resp BP Sys/Jon Pulse Ox Last 24 Hr 98.0 F-98.6 F 47-76 02-18 97-128/42-69 97-100 GENERAL: AAOx3 NAD HEAD: Normal with no signs of trauma. EYES: EOMI, Sclera clear ENT: MMM NECK: Trachea midline, full range of motion, supple. LUNGS: CTAB HEART: RRR No MRG S1S2 ABDOMEN: Soft, Bowel sounds appreciated. 3 port site incisions. Nondistended and nontender. EXTREMITIES: 2+ pulses, warm, well-perfused, no edema. NEUROLOGICAL: Cranial nerves II through XII grossly intact. PSYCH: Normal mood, normal affect. SKIN: Warm, dry. Laboratory Results - last 24 hr 02/04/20 02/04/20 02/04/20 20:10 20:10 20:10 WBC 11.7 H RBC 4.57 Hgb 14.8 Hct 43.2 MCV 94.7 MCH 32.5 MCHC 34.3 RDW 12.8 Plt Count 217 MPV 9.0 Absolute Neuts (auto) 10.4 H Neutrophils % 88.7 H Lymphocytes % 7.6 L D Monocytes % 3.4 L Eosinophils % 0.1 D Basophils % 0.2 Nucleated RBC % 0 PT with INR INR PTT (Actin FS) Sodium 137 Potassium 4.3 Chloride 102 Carbon Dioxide 28 Anion Gap 7 L BUN 18.4 H Creatinine 1.0 Est GFR (CKD-EPI)AfAm 125.02 Est GFR (CKD-EPI)NonAf 107.87 Random Glucose 117 H Calcium 9.6 Phosphorus Magnesium Total Bilirubin 1.2 H AST 64 H ALT 48 Alkaline Phosphatase 80 Total Protein 7.3 Albumin 4.4 Lipase 111 Urine Color Yellow Urine Appearance Clear Urine pH 5.5 Ur Specific [place] 1.026 Urine Protein Negative Urine Glucose (UA) Negative Urine Ketones 3+ H Urine Blood Negative Urine Nitrite Negative Urine Bilirubin Negative Urine Urobilinogen 0.2 Ur Leukocyte Esterase Negative Blood Type Antibody Screen 02/05/20 02/05/20 02/05/20 01:30 01:30 05:18 WBC 11.1 H RBC 4.27 Hgb 13.5 Hct 40.3 MCV 94.2 MCH 31.6 MCHC 33.5 RDW 12.4 Plt Count 186 MPV 8.8 Absolute Neuts (auto) 8.5 H Neutrophils % 77.3 Lymphocytes % 13.7 D Monocytes % 8.2 D Eosinophils % 0.3 D Basophils % 0.5 Nucleated RBC % 0 PT with INR 14.80 H INR 1.21 H PTT (Actin FS) 31.4 Sodium Potassium Chloride Carbon Dioxide Anion Gap BUN Creatinine Est GFR (CKD-EPI)AfAm Est GFR (CKD-EPI)NonAf Random Glucose Calcium Phosphorus Magnesium Total Bilirubin AST ALT Alkaline Phosphatase Total Protein Albumin Lipase Urine Color Urine Appearance Urine pH Ur Specific [place] Urine Protein Urine Glucose (UA) Urine Ketones Urine Blood Urine Nitrite Urine Bilirubin Urine Urobilinogen Ur Leukocyte Esterase Blood Type O POSITIVE Antibody Screen Negative 02/05/20 02/05/20 05:18 05:18 WBC RBC Hgb Hct MCV MCH MCHC RDW Plt Count MPV Absolute Neuts (auto) Neutrophils % Lymphocytes % Monocytes % Eosinophils % Basophils % Nucleated RBC % PT with INR 14.70 H INR 1.20 H PTT (Actin FS) 31.4 Sodium 139 Potassium 4.0 Chloride 106 Carbon Dioxide 29 Anion Gap 4 L BUN 12.8 Creatinine 1.0 Est GFR (CKD-EPI)AfAm 125.02 Est GFR (CKD-EPI)NonAf 107.87 Random Glucose 118 H Calcium 8.5 Phosphorus 3.8 Magnesium 2.0 Total Bilirubin 1.8 H AST 48 H ALT 39 Alkaline Phosphatase 67 Total Protein 6.0 L Albumin 3.7 Lipase Urine Color Urine Appearance Urine pH Ur Specific [place] Urine Protein Urine Glucose (UA) Urine Ketones Urine Blood Urine Nitrite Urine Bilirubin Urine Urobilinogen Ur Leukocyte Esterase Blood Type Antibody Screen Active Medications Generic Name Dose Route Start Last Admin Trade Name Abdirashid PRN Reason Stop Dose Admin Acetaminophen 1,000 mg 02/05/20 15:37 Ofirmev Injection - IVPB 02/06/20 03:48 Q6H PRN PAIN LEVEL 6-10 Lactated Ringer's 1,000 mls @ 125 mls/hr 02/05/20 15:37 02/05/20 15:44 Lactated Ringers Solution IV Not Given ASDIR OLINDA Ibuprofen 400 mg 02/05/20 15:37 Motrin - PO Q6H PRN PAIN LEVEL 6-10 Oxycodone HCl 5 mg 02/05/20 15:37 02/05/20 16:25 Roxicodone - PO 5 mg Q4H PRN Administration PAIN LEVEL 1-5 ASSESSMENT/PLAN: 19-year-old male no significant past medical history presents with acute appendicitis. #Appendicitis s/p Lap Appendectomy POD#0 Status post uncomplicated appendectomy on 02/05/2020 Pain control with Oxycodone/ Ibuprofen, and Tylenol On LR. Will d/c once tolerating PO -Received Zosyn prior to Surgery. Discontinued -Surgery on board. Recs appreciated -Advance diet as tolerated #FEN LR@125 Monitor Electrolytes Reg diet for evening #DVT ppx; EAM #Dispo: Med Surg Visit type - Emergency Visit Emergency Visit: Yes ED Registration Date: 02/04/20 Care time: The patient presented to the Emergency Department on the above date and was hospitalized for further evaluation of their emergent condition. - New Patient This patient is new to me today: No - Critical Care Critical Care patient: No - Discharge Referral Referred to [facility] Med P.C.: No ATTENDING PHYSICIAN STATEMENT I saw and evaluated the patient. I reviewed the resident's note and discussed the case with the resident. I agree with the resident's findings and plan as documented. SUBJECTIVE: OBJECTIVE: ASSESSMENT AND PLAN:
--- NOTE | 2020-02-05 18:14 | OP ---
DATE OF OPERATION: 02/05/2020 PREOPERATIVE DIAGNOSIS: Acute appendicitis. POSTOPERATIVE DIAGNOSIS: Acute appendicitis. PROCEDURE: Laparoscopic appendectomy. SURGEON: Maynor Nova MD. WARP TYING MACHINE TENDER: Eliot Driscoll PA-C. ANESTHESIA: General. OPERATIVE FINDINGS: Acute suppurative appendicitis. The rest of the findings are unremarkable. PROCEDURE: The patient was placed on the operating room table in the supine position, and after induction of general anesthesia and placement of a Elizondo catheter, the patient's abdomen was prepped with ChloraPrep and draped in sterile fashion. A timeout was taken, and pneumoperitoneum established at the umbilicus, using a Veress needle to an intraabdominal pressure of 15 mmHg. Next, a 12-mm suprapubic port just to the left of the midline was placed without incident, and then a left lower quadrant 5-mm port. The patient was placed in the head-down position and rotated to the left and laparoscopy carried out and previously noted findings were observed. The appendix was grasped and using blunt dissection and the LigaSure device mobilized from the lateral abdominal wall. The mesoappendix was serially divided using the LigaSure device as well. Once the base of the appendix was identified at the confluence of the 3 tenia on the cecum, a 60-mm Endo JESSA purple load stapler was placed across the base of the appendix and fired. The appendix was then placed in an EndoCatch and brought up to the abdominal wall at the 12-mm port site. The suture line was inspected for hemostasis and/or leak, and there was found to be none. The appendix was then removed with the 12-mm port, and sent the pathological examination. The 12-mm port was replaced and pneumoperitoneum reestablished, and hemostasis checked for and noted to be good. At this point, the two 5-mm ports and the 12-mm port were removed, and the pneumoperitoneum evacuated. The defect at the suprapubic port site was closed with a single [id number] 0 Vicryl suture, and the port sites were injected with 0.5% Marcaine. The skin edges were reapproximated with interrupted 4-0 Biosyn followed by Steri-Strips and Band-Aid dressings. The patient was then aroused from anesthesia and prior to this the Elizondo catheter removed, and the patient transferred to post anesthesia care unit in stable condition awake and alert, estimated blood loss 30 mL, replacement crystalloid, drains none, specimen appendix to pathology. I, Maynor Nova, was physically present in the operating room from the time the patient was placed on the operating room table until patient was transferred to the postanesthesia care unit in my accompaniment. ESTIMATED BLOOD LOSS: 10 mL. REPLACEMENTS: Crystalloids. DRAINS: None. SPECIMEN: Appendix to pathology. I, Maynor Nova, was physically present in the operating room from the time the patient was placed on the operating room table until he was transferred to the postanesthesia care unit in my accompaniment. MD ROWENA Barajas/[id number] MTDD
[2020-02-06 07:47] LABS: HEMATOCRIT 37.7 % (35.4-49); HEMOGLOBIN 13.1 GM/dL (11.7-16.9); MCH 33.1 pg (25.7-33.7); MCHC 34.7 g/dl (32.0-35.9); MEAN CELL VOLUME 95.5 fl (80-96); MEAN PLT VOLUME 9.4 fl (7.5-11.1); PLATELET COUNT 181 K/MM3 (134-434); RBC 3.95 M/mm3 (4.00-5.60); RDW 12.6 % (11.9-15.9); WHITE BLOOD COUNT 8.3 K/mm3 (4.0-10.0)
[2020-02-06 08:07] LABS: ALBUMIN 3.3 g/dl (3.4-5.0); CALCIUM 8.9 mg/dL (8.5-10.1)
[2020-02-06 08:08] LABS: BLOOD UREA NITROGEN 11.3 mg/dL (7-18); MAGNESIUM 2.2 mg/dL (1.8-2.4)
[2020-02-06 08:11] LABS: CREATININE 0.8 mg/dL (0.55-1.3); PHOSPHOROUS 3.9 mg/dL (2.5-4.9)
[2020-02-06 08:12] LABS: BILIRUBIN,TOTAL 1.2 mg/dL (0.2-1)
--- NOTE | 2020-02-06 10:34 | PN ---
Progress Note (short form) - Note Progress Note: Attending Surgeon POD#1 No c/o; voided and tolerated diet VSS AF abdo-soft and port sites c/d/i; o/w negative WBC-nl IMP: stable post op PLAN:Stable for discharge to office f/u. Maynor Nova MD FACS
--- NOTE | 2020-02-06 12:23 | DS ---
Physical Exam: SUBJECTIVE: Patient seen and examined at bedside, moving bowels, tolerating PO, s/p lap appendectomy POD#1, stable for DC home with outpatient surgery follow up. VSS. OBJECTIVE: Vital Signs Period Temp Pulse Resp BP Sys/Jon Pulse Ox Last 24 Hr 98.1 F-98.5 F 59-75 16-18 109-117/45-51 97-98 PHYSICAL EXAM GENERAL: The patient is awake, alert, and fully oriented, in no acute distress. HEAD: Normal with no signs of trauma. EYES: PERRL, extraocular movements intact, sclera anicteric, conjunctiva clear. ENT: Ears normal, nares patent, oropharynx clear without exudates, moist mucous membranes. NECK: Trachea midline, full range of motion, supple. LUNGS: Breath sounds equal, clear to auscultation bilaterally, no wheezes, no crackles, no accessory muscle use. HEART: Regular rate and rhythm, S1, S2 without murmur, rub or gallop. ABDOMEN: minimal TTP around incision sites, soft, ND, BS+ EXTREMITIES: 2+ pulses, warm, well-perfused, no edema. NEUROLOGICAL: Cranial nerves II through XII grossly intact. Normal speech, gait not observed. PSYCH: Normal mood, normal affect. SKIN: Warm, dry, normal turgor, no rashes or lesions noted. LABS Laboratory Results - last 24 hr 02/05/20 02/06/20 02/06/20 01:30 06:52 06:52 WBC 8.3 RBC 3.95 L Hgb 13.1 Hct 37.7 MCV 95.5 MCH 33.1 MCHC 34.7 RDW 12.6 Plt Count 181 MPV 9.4 Sodium 139 Potassium 4.0 Chloride 104 Carbon Dioxide 29 Anion Gap 7 L BUN 11.3 Creatinine 0.8 Est GFR (CKD-EPI)AfAm 149.04 Est GFR (CKD-EPI)NonAf 128.60 Random Glucose 99 Calcium 8.9 Phosphorus 3.9 Magnesium 2.2 Total Bilirubin 1.2 H AST 31 ALT 32 Alkaline Phosphatase 63 Total Protein 6.0 L Albumin 3.3 L COVID-19 (JOHN) Not detected HOSPITAL COURSE: 19 M no significant PMhx, presents w/ acute/sudden generalized abdominal pain then migrating to RLQ, found to have early acute appendicitis on CT A/P, s/p lap appendectomy POD#1. Tolerating PO, doing well. Stable for DC home w/ Surgery follow up. Date of Admission:02/04/20 Date of Discharge: 02/06/20 Discharge meds: Tylenol PRN (OTC) Minutes to complete discharge: 45 Discharge Summary Problems reviewed: Yes Reason For Visit: APPENDICITIS Current Active Problems Appendicitis (Acute) Condition: Stable - Instructions Diet, Activity, Other Instructions: Dr. Nova Discharge Instructions Dear ROSS BENNETT, Post Operative Instructions Physical activity Resume your normal everyday activity as tolerated no heavy lifting or exercise until seen by your surgeon. You may walk unlimited amounts of and climb stairs. You may resume driving the car when you feel safe and comfortable behind the wheel. Wound care You have a liquid bandage over your incisions. This will come off slowly on its own over the next few weeks. Please avoid picking at it if you notice it flaking. You may shower starting tomorrow. When showering allow soap and water to run over the incision. Do not scrub, pat dry after showering. Diet There are no dietary restrictions. Eat healthy, high-fiber foods. Drink 6 to 8 glasses of liquid each day. This will assist in keeping your bowels are regular. Pain management You may take Tylenol or acetaminophen or Ibuprofen (for example, Motrin, Advil etc.) Any pain prescription medication ordered should be taken as prescribed for moderate to severe pain. Call Dr. Nova for any of the following: Severe pain not relieved by medication Fever of 101 or higher Excessive bleeding or drainage on dressing Inability to urinate Call the office at [phone] for a post operative appointment in 7 - 10 days. Referrals: Bassem Gayle MD [Primary Care Provider] - - Home Medications Comprehensive Discharge Medication List: Ambulatory Orders NK [No Known Home Medication] 02/04/20 This patient is new to me today: Yes Date on this admission: 02/06/20 Emergency Visit: Yes ED Registration Date: 02/04/20 Care time: The patient presented to the Emergency Department on the above date and was hospitalized for further evaluation of their emergent condition. Critical Care patient: No - Discharge Referral Referred to [facility] Med P.C.: No
[2020-02-06 12:57] VITALS: BP 144/59; PULSE 60; TEMP 97.7
--- NOTE | 2020-02-08 15:41 | PATH ---
Surgical Pathology Report Patient Name: ROSS BENNETT Med. Rec. #: [id number] /Age/Gender: 2000 (Age: 19) / M Account: [id number] Location: [facility] MED/SURG Taken: 02/05/2020 Received: 02/05/2020 Reported: 02/08/2020 Physicians: Maynor Nova MD Specimen(s) Received APPENDIX Clinical History Acute appendicitis Final Diagnosis APPENDIX, APPENDECTOMY: ACUTE APPENDICITIS AND PERIAPPENDICITIS. Electronically Signed Viky Pop M.D. Gross Description Received in formalin, labeled "appendix," is an 8 cm. in length vermiform appendix with a stapled margin of resection and moderate attached fat. The serosa is edan-pink with attached exudate. Sectioning reveals a hemorrhagic lumen. The wall of the appendix averages 0.1 cm. in thickness. Video Tape Duplicator sections are submitted in one cassette. /02/05/2020 saudi02/05/2020
== END 2020-02-06 15:00 | disposition home or self-care (01) | DRG 225 ==
LOC: JER 19:35 → JERBED 20:23 → J8W 02-05 12:06
PROVIDERS: ADMIT Internal Medicine
PROC: 0DTJ4ZZ Resection of Appendix, Percutaneous Endoscopic Approach (ICD-10-PCS; principal; 2020-02-05 09:00)
DX: K35.80 Unspecified acute appendicitis (principal)
CPT/HCPCS: 36415; 74177-TC; 80053; 81003; 83690; 83735; 84100; 85025; 85027; 85610; 85730; 86850; 86900; 86901; 88304-TC; 93005; 93010; 94760; 99285-25; C9803; J0131; Q9967; U0003

== ENCOUNTER 2020-12-17 19:26 | Emergency (ER) | payer OTHER ==
[2020-12-17 19:32] VITALS: BP 120/78; PULSE 77; TEMP 98.7; BMI 26.6
[2020-12-17] MEDS ORDERED: LIDOCAINE 0.4% PREMIX IVPB 2,000 MG/500 ML INFUS..BTL ONE (21:00)
[2020-12-17] MEDS ORDERED: LIDOCAINE 1%/EPI 1:100000 (20 ML MULTI DOSE VIAL) ONE (21:01)
[2020-12-17] MEDS ORDERED: LIDOCAINE 1%/EPI 1:100000 (20 ML MULTI DOSE VIAL) INF ONE (21:27)
== END 2020-12-17 22:51 | disposition home or self-care (01) ==
LOC: JERFT 19:26
PROC: 0JQ10ZZ Repair Face Subcutaneous Tissue and Fascia, Open Approach (ICD-10-PCS; principal; 2020-12-17)
DX: S01.81XA Laceration without foreign body of other part of head, initial encounter (principal); S09.90XA Unspecified injury of head, initial encounter; W50.0XXA Accidental hit or strike by another person, initial encounter; Y92.9 Unspecified place or not applicable
CPT/HCPCS: 70450-TC; 70486-TC; 99284-25

== ENCOUNTER 2020-12-24 08:28 | Emergency (ER) | payer OTHER ==
[2020-12-24 08:34] VITALS: BP 117/53; PULSE 77; TEMP 97.9; BMI 26.6
== END 2020-12-24 09:00 | disposition home or self-care (01) ==
LOC: JER 08:28 → JERFT 08:28
DX: Z48.02 Encounter for removal of sutures (principal)
CPT/HCPCS: 99281-25